=== PATIENT | male | born 1955 | race Caucasian/White ===

== ENCOUNTER → 2019-05-18 | Outpatient (CLI) | payer MEDICARE, OTHER ==
--- NOTE | 2019-05-18 11:46 | PCVCIMAG ---
EXAM: BILATERAL LOWER EXTREMITY ARTERIAL DUPLEX INDICATION: Peripheral Arterial Disease. Leg pain. FINDINGS: Right Leg: Satisfactory arterial waveforms throughout the common/profunda/superficial femoral, popliteal, anterior tibial, peroneal, and posterior tibial arteries. No flow limiting stenosis seen. Left Leg: Common femoral and profunda femoral arteries patent. Increased systolic velocity 223 cm/s from 197 m/s distal council superficial femoral artery consistent with 50% stenosis. In the upper popliteal artery is a fusiform aneurysm measuring up to 2.0 cm in diameter. Mid and distal popliteal artery normal in caliber without stenosis. The anterior tibial, peroneal, and posterior tibial arteries are patent. IMPRESSION: No flow limiting stenosis in the right lower extremity. 50% stenosis distal council left superficial femoral artery. 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 LOC:[id number]
== END | disposition home or self-care (01) ==
LOC: PCVCIMAG 10:11
PROVIDERS: ATTEND Nuclear Medicine Nuclear Cardiology
DX: I73.9 Peripheral vascular disease, unspecified (principal); F17.200 Nicotine dependence, unspecified, uncomplicated; E78.00 Pure hypercholesterolemia, unspecified; I25.10 Atherosclerotic heart disease of native coronary artery without angina pectoris; J44.9 Chronic obstructive pulmonary disease, unspecified; I10 Essential (primary) hypertension
CPT/HCPCS: 93925; G0463

== ENCOUNTER → 2019-06-27 | Outpatient (CLI) | payer MEDICARE, OTHER ==
[~2019-06-27] MED LIST: REGADENOSON 0.4 MG/5 ML DISP.SYRIN. IV ONE
--- NOTE | 2019-06-28 10:54 | PCVCIMAG ---
APPROVED REPORT Imaging Protocol: Rest Tc-99m/Stress Tc-99m 1 day Study performed: 06/27/2019 13:29:33 Indication: CAD Patient Location: Out-Patient Stress Nurse: SOHA Arthur Tech:Lex Evans NMKYAWB Ht: 6 ft 4 in Wt: 260 lbs BSA: 2.48 m2 HR: 80 bpm BP: 112/78 mmHg BMI: 31.6 Rhythm: Sinus Rhythm Medical History Medical History: Age, Hyperlipidemia, HTN, PVD, COPD, CAD, Smoker Medications: ASA, Lotensin, Plavix, Metoprolol, Zocor Allergies: No known drug allergies Previous Cardiac Procedures: PCI Resting Data Rest SPECT myocardial perfusion imaging was performed in supine position 45 minutes following the intravenous injection of 12 mCi of Tc-99m Sestamibi. Time of rest injection: 1310 Date: 06/27/2019 Administration Route: IV Administration Site: Right Hand Pharmacologic Stress Pharmacologic stress test was performed by injecting Regadenoson 0.4 mg IV push over 10-15 seconds immediately followed by the intravenous injection of 32.7 mCi of Tc-99m Sestamibi. Time of stress injection: 1420 Date: 06/27/2019 Administration Route: IV Administration Site: Right Hand Gated Stress SPECT was performed 45 minutes after stress injection. The images were gated to evaluate regional wall motion and calculate left ventricular ejection fraction. Stress Test Details Stress Test: Pharmacologic stress was paired with low level exercise. Reason for pharmacologic stress test: Parkinsons. HRMax Heart Rate (APMHR): 155 bpm Resting HR: 80 bpmTarget HR (85% APMHR): 131 bpm Max HR Achieved: 100 bpm % of APMHR: 64 Recovery HR: 79 bpm BP Resting BP: 112/78 mmHg Max BP: 165/72 mmHg Recovery BP: 159/70 mmHg ECG Resting ECG: Sinus Rhythm Stress ECG: Sinus Tachycardia Arrhythmia: PVC's Recovery ECG: Sinus Rhythm Clinical Reason for Termination: Completed protocol Stress Symptoms: Dyspnea, Leg Heaviness Symptoms resolved during recovery. Stress ECG Conclusion ECG: Non-ischemic Study Quality Study: Good Study Data Post stress, the left ventricular ejection was 65%.. SSS: 11 SRS: 3 SDS: 9 TID = 1.08. Perfusion Large sized area of moderate reversible ischemia involving the basal inferior/septal and mid/apical inferolateral left ventricle. No worrisome anterior ischemia. Wall Motion Normal left ventricular size and function with no regional wall motion abnormalities. Nuclear Conclusion Large sized area of moderate reversible ischemia involving the basal inferior/septal and mid/apical inferolateral left ventricle likely related to patient's known proximal right coronary artery occlusion. Post stress, the left ventricular ejection was 65%. No prior study available for comparison. Interpreted by: Tyler Bee MD Electronically Approved: 06/27/2019 15:28:33 <Conclusion> ECG: Non-ischemic
== END | disposition home or self-care (01) ==
LOC: PCVCIMAG 13:05
PROVIDERS: ATTEND Nuclear Medicine Nuclear Cardiology
DX: I25.10 Atherosclerotic heart disease of native coronary artery without angina pectoris (principal); F17.200 Nicotine dependence, unspecified, uncomplicated
CPT/HCPCS: 78452; 93017; A9500; J2785